=== PATIENT | female | born 1945 | race African-American/Black ===

== ENCOUNTER 2021-08-23 08:11 | Outpatient (CLI) | payer MEDICARE ==
[2021-08-24 11:37] LABS: Actual Bicarbonate (HCO3a) 25.2 mEq/L (22-28); Base Excess (BEa) -0.3 mEq/L (-2.0 to +3.0); CO2 Tension 44.1 mmHg (35.0-45.0); O2 Tension (PaO2), arterial 48.1 mmHg (> 70.0); pH, Arterial 7.37 (7.35-7.45)
[2021-08-24 11:38] LABS: Carboxyhemoglobin (COHb) 5.2 gm% (0.0-3.0); Hemoglobin (Hb) 15.4 g/dL (12.0-16.0)
[2021-08-24 11:39] LABS: Calcium, Ionized (arterial) 1.24 mmol/L (1.12-1.30); Potassium - ABG Lab 3.8 mmol/L (3.70-5.30); Puncture Site LRA
[2021-08-24 11:40] LABS: ALV-art Gradient 46.505 mmHg (0-20)
== END 2021-08-23 08:12 | disposition home or self-care (01) ==
LOC: CSHCP 08:11
PROVIDERS: ATTEND Internal Medicine Pulmonary Disease
DX: J44.9 Chronic obstructive pulmonary disease, unspecified (principal); R09.02 Hypoxemia
CPT/HCPCS: 36600; 82805; 94150; 94726; 94729; 94760